=== PATIENT | male | born 1965 | race Caucasian/White ===

== ENCOUNTER → 2019-11-01 | Outpatient (CLI) | payer SELFPAY ==
[2019-11-01 13:55] LABS: BASO % 0.7 % (0.0-2.0); EOS # 0.2 (0.0-0.7); EOS % 2.7 % (0-4.0); GRAN % 50.1 % (42.2-75.2); HEMATOCRIT 39.2 % (42.0-52.0); HEMOGLOBIN 13.3 g/dl (13.5-18.0); LYMPH # 2.2 (1.2-3.4); LYMPH % 37.4 % (20.0-51.0); MEAN CELL VOLUME 93 fl (80.0-100.0); MEAN CORPUSCULAR HEMOGLOBIN 32 pg (27.0-31.0); MEAN CORPUSCULAR HGB CONC 34 g/dl (33.0-37.0); MEAN PLATELET VOLUME 8.6 fl (7.4-10.4); MONO # 0.5 (0.1-0.6); MONO % 8.8 % (1.7-9.3); PLATELET COUNT 326 K/mm3 (130-400); RED BLOOD COUNT 4.21 M/mm3 (4.20-5.60); REDCELL DISTRIBUTION WIDTH-CV 12.2 % (11.5-14.5)
[2019-11-01 14:16] LABS: ERYTHROCYTE SEDIMENTATION RATE 8 mm/hr (0-30)
== END ==
LOC: COL.RAD 12:45 → COL.LAB 12:49 → COL.RAD 12:49
PROVIDERS: Orthopaedic Surgery Sports Medicine
DX: L02.416 Cutaneous abscess of left lower limb (principal); Z96.642 Presence of left artificial hip joint

== ENCOUNTER → 2019-11-06 | Outpatient (CLI) | payer SELFPAY ==
[2019-11-06 12:30] LABS: BASO % 0.7 % (0.0-2.0); EOS # 0.2 (0.0-0.7); EOS % 2.5 % (0-4.0); GRAN # 2.4 (1.4-6.5); GRAN % 38.9 % (42.2-75.2); LYMPH % 49.2 % (20.0-51.0); MEAN CELL VOLUME 94 fl (80.0-100.0); MEAN CORPUSCULAR HEMOGLOBIN 31 pg (27.0-31.0); MEAN CORPUSCULAR HGB CONC 33 g/dl (33.0-37.0); MONO # 0.5 (0.1-0.6); MONO % 8.4 % (1.7-9.3); PLATELET COUNT 344 K/mm3 (130-400); RED BLOOD COUNT 4.46 M/mm3 (4.20-5.60); REDCELL DISTRIBUTION WIDTH-CV 12.2 % (11.5-14.5)
[2019-11-06 13:00] LABS: ERYTHROCYTE SEDIMENTATION RATE 1 mm/hr (0-30)
== END ==
LOC: COL.LAB 12:02
PROVIDERS: Physician Assistant
DX: M25.552 Pain in left hip (principal); Z96.642 Presence of left artificial hip joint

== ENCOUNTER → 2021-03-08 | Outpatient (CLI) | payer SELFPAY ==
--- NOTE | 2021-03-09 14:50 | NUR ---
1430-COVID test came back positive. Dr. Macedo notified and order received to reschedule patient due to positive result. Called and notified patient and he reports no prior COVID infection and that he was fully vaccinated for COVID in Sep and October. He denies having any symptoms at this time. Patient informed he needs to quarantine and that the health department will be reaching out to him with further information.
== END ==
LOC: COL.LAB 08:00 → EDSTATUS 03-11 08:30 → SDCO 03-11 08:30
DX: U07.1 COVID-19 (principal)

== ENCOUNTER → 2021-05-20 | Outpatient (CLI) | payer OTHER | LOC: COL.VAS 10:00 | DX: M79.662 Pain in left lower leg (principal); M79.89 Other specified soft tissue disorders ==

== ENCOUNTER → 2023-11-10 | Outpatient (CLI) | payer OTHER | LOC: COL.RAD 13:00 | DX: M79.662 Pain in left lower leg (principal) ==